=== PATIENT | female | born 1965 | race Caucasian/White ===

== ENCOUNTER → 2017-01-11 | Outpatient (CLI) | payer OTHER ==
[~2017-01-11] MED LIST: OXYC1TAB36 PO
== END ==
LOC: CLAB 09:35
PROVIDERS: ATTEND Family Medicine
DX: Z87.891 Personal history of nicotine dependence (principal)
CPT/HCPCS: 36415; 84443

== ENCOUNTER → 2017-01-15 | Day surgery (SDC) | payer OTHER ==
[2017-01-15 14:34] VITALS: BP 103/62; PULSE 80; RESP 16; TEMP 98.1; O2SAT 100
--- NOTE | 2017-01-15 16:55 | RADRPT ---
EXAM DATE/TIME: 01/15/2017 14:30 [facility] COMPARISON: No previous studies available for comparison. INDICATIONS : Right breast cancer. DOSE: 2 mCi Tc99m Sulfur Colloid INJECTION SITE: Right Breast MEDICAL HISTORY : Carcinoma, breast. SURGICAL HISTORY : None. ENCOUNTER: Initial ACUITY: 1 month PAIN SCALE: 3/10 LOCATION: Right Breast. TECHNIQUE: Injection(s) of sulfur colloid was performed under sonographic guidance. Static imaging was obtained .. FINDINGS: Deep and superficial injections were performed around the patient's mass. No definite lymph nodes wer e identified on the 30 minute scan. CONCLUSION: 1. No definite nodes identified on the 30 minute scan. Jabier Schreiber MD on January 15, 2017 at 16:53 Board Certified Radiologist. This report was verified electronically.
--- NOTE | 2017-01-15 16:56 | RADRPT ---
EXAM DATE/TIME: 01/15/2017 14:36 [facility] COMPARISON: CT THORAX W/O CONTRAST, August 15, 2016, 16:01. EXTERNAL COMPARISON : [facility], MRI BREAST, BILATERAL, December 10, 2016[facility], US BREAST, RIGHT. Ja lesvia 2016. [facility], MAMMOGRAM, BILATERALW TOMOSYNTHESIS, October 16, 2016. [facility], MR GUIDED LEFT BREAST BIOPSY, August 20, 2016. INDICATIONS : Right breast cancer. MEDICAL HISTORY : Breast cancer. SURGICAL HISTORY : Breast biopsy. Dilation and curettage. ENCOUNTER: Initial ACUITY: 7-11 months PAIN SCORE: 0/10 LOCATION: Right breast. AREA EVALUATED: Right breast, upper quadrant; at 11 o'clock Radiopharmaceutical dose: 2 Tc99m Arrey colloid FINDINGS: Breast ultrasound was performed prior to lymphoscintigraphy. The mass was easily localized. CONCLUSION: 1. Heterogeneous ill-defined right breast mass in the retroareolar region at approximately 12: 2. 00. Soft colloid was injected around this in the deep and subcutaneous planes for lymphoscintigrap hy. Jabier Schreiber MD on January 15, 2017 at 16:53 Board Certified Radiologist. This report was verified electronically.
== END | disposition home or self-care (01) ==
LOC: HRAD 12:48
PROVIDERS: ATTEND Surgery
DX: C50.911 Malignant neoplasm of unspecified site of right female breast (principal)
CPT/HCPCS: 76642; 78195; A9541

== ENCOUNTER 2017-01-16 05:49 | Observation (INO) | payer OTHER ==
[~2017-01-16] VITALS: Ht 170.2 cm; Wt 57.1 kg
[2017-01-16] MEDS ORDERED: ONDANSETRON HCL 4 MG/2 ML VIAL IV PUSH SCH (06:30)
[2017-01-16] MEDS ORDERED: LACTATED RINGER'S 1000 ML IV PRN (06:30)
[2017-01-16] MEDS ORDERED: ceFAZolin 2 GM PREMIX 50 ML IV SCH (06:30)
[2017-01-16] MEDS ORDERED: METOPROLOL TARTRATE 25 MG TAB PO PRN (06:30)
[2017-01-16] MEDS ORDERED: POVIDONE IODINE 5% (ANTISEPSIS KIT) 4 APPLICATIONS EACH NARE PRN (06:30)
[2017-01-16] MEDS ORDERED: SODIUM CHLORID 0.9% 500 ML IV PRN (06:30)
[2017-01-16] MEDS ORDERED: CHLORHEXIDINE GLUCONATE 2 % 1 PACK (2 CLOTHS) TOPICAL PRN (06:30)
[2017-01-16] MEDS ORDERED: INSULIN HUMAN REGULAR 1,000 UNITS/10 ML VIAL SQ PRN (06:30)
[2017-01-16 07:00] VITALS: BP 118/71; PULSE 78; RESP 20; TEMP 97.9; O2SAT 98
[2017-01-16] MEDS ORDERED: ACETAMINOPHEN 1000 MG/100 ML VIAL IV ONE ×2 (07:08→07:31)
[2017-01-16] MEDS ORDERED: FAMOTIDINE 20 MG/2 ML VIAL ONE (07:31)
[2017-01-16] MEDS ORDERED: MIDAZOLAM HCL 2 MG/2 ML VIAL ONE (07:31)
[2017-01-16] MEDS ORDERED: fentaNYL CITRATE 250 MCG/5 ML AMP ONE (07:31)
[2017-01-16] MEDS ORDERED: DEXAMETHASONE SOD PHOS 4 MG/ML VIAL ONE (07:31)
[2017-01-16] MEDS ORDERED: APREPITANT 40 MG CAP ONE (07:39)
--- NOTE | 2017-01-16 08:14 | MH ---
cc: LEEANN KENNEY M.D. DATE OF ADMISSION 01/16/2017 DATE OF 1965 CHIEF COMPLAINT Right breast cancer. Patient for bilateral mastectomies and immediate reconstruction with one-stage implant reconstruction. HISTORY This is a 51-year-old white female who felt a lump in her right breast sometime at the end of May of 2016, was diagnosed with biopsy-proven breast cancer, has been undergoing adjuvant chemotherapy to shrink the tumor which is fairly large in the right upper quadrant of the breast. The patient is now ready for mastectomy. She was also noted to have MRI abnormalities on the left breast and has decided to go with bilateral mastectomies. She does not want to have multiple surgeries and was explained the overall reconstruction process in detail in my office back on December 21, 2016. The patient was explained the prosthetic reconstruction versus autologous reconstruction versus a combination of the two. Her breast is fairly small. She does not want much volume or cleavage of the reconstructed breasts. She does not want to have any muscle flaps and wants to do only a single stage implant only reconstruction. She was explained the anatomical differences between the one-stage implant reconstruction versus a two-stage tissue auto service station attendant and second stage implant reconstruction in terms of the better positioning of the final implant towards the midline, however, she is not interested in that improvement at this time. She also has financial issues and is being covered by the [facility] as hansa and wants to finish this in one surgery if possible. She underwent a detailed explanation of the surgical technique, anatomy, the possibility of doing either an areolar sparing versus a skin sparing only mastectomy. The possibility of risks and complications such as flap vascularity issue due to the mastectomy, possibility of bleeding, hematoma, infection, seroma, lymphatic collection, possible wound dehiscence, wound necrosis, flap necrosis and loss of reconstruction, possible multiple surgeries including debridement and open wound care, wound Vac were pointed out. She is willing to take all the chances. She also understands the surgery is under general anesthesia and there are risks and complications associated with that as well. The cancer treatment will also continue. She may need radiation therapy postop. She may also need prolonged additional chemotherapy as well. The patient otherwise is psychologically stable and is able to understand the pros and cons well. PAST MEDICAL HISTORY Her medical history is negative for diabetes, hypertension or heart problems. She has history of genital herpes only. SOCIAL HISTORY The patient has been smoking one-pack of cigarettes for 20 years. She quit in June 2016. Alcohol social. No street drugs. ACCOUNT OFFICER HISTORY She has had four pregnancies, two children, was able to breast feed only a small time. CURRENT MEDICATIONS Include Vitamins. ALLERGIES No allergies. PHYSICAL EXAM Examination shows a 51-year-old white female with stable vital signs. GENERAL: The patient is alert, cooperative, fully oriented, emotionally stable. She is fully ambulant. HEAD AND NECK: Showed clear sclerae, equal pupils. Trachea in midline. No thyromegaly. No other masses. NECK: Normal neck movements. CHEST: Good expansion with normal breathing, normal breath sounds, normal heart sounds. EXTREMITIES: Grossly normal. BREASTS: The examination shows relatively small breasts with a wide space between the two breasts. The lump is palpable in the upper outer quadrant of the right breast. No nipple discharge. No bleeding at the nipple. There is some puckering of the skin noted on the right upper quadrant. The left breast is relatively normal. The measurement showed neck to the nipple distance of 18.5 on the right, 19.5 on the left. Nipple to the chest distance 5.0 on the right, 5.75 on the left. The nipple to the midline 9 cm on each side. The neck to the medial breast fold 14 cm, neck to the inframammary fold 19.5-20 cm. The medial breasts are by 2.5 to 3 cm. The transverse chest diameter is 14.5 on the right and 15.5 on the left. The mass is approximately 3 x 4 cm and somewhat adherent to the skin just above the areola. PLAN The plan is to proceed with bilateral mastectomies and immediate small implant reconstruction. The patient was shown the different implants, smooth textured silicone implant is selected by the patient. The others implants including saline and textured implants and shape implants were also shown. The approximate volume around 240-250 cc expected. The patient's laboratory tests will be reviewed when available on the chart. signed, not fully reviewed MD SANDRITA Leyva/RACHEL /7:43 AM /8:00 AM JOHN
[2017-01-16] MEDS ORDERED: GENTAMICIN SULFATE 80 MG/2 ML VIAL ONE (08:21)
[2017-01-16] MEDS ORDERED: BUPIVACAINE HCL PF 0.5% 30 ML VIAL ONE (08:21)
[2017-01-16] MEDS ORDERED: LIDOCAINE 1%/EPINEPHrine 1:100,000 SOLN 20 ML VIAL ONE (08:22)
[2017-01-16] MEDS ORDERED: SODIUM CHLORIDE 0.9% 20 ML VIAL ONE (08:53)
[2017-01-16] MEDS ORDERED: BUPIVACAINE/EPINEPHRINE 0.5% PF 30 ML VIAL ONE (08:55)
[2017-01-16] MEDS ORDERED: ceFAZolin INJ 1,000 MG VIAL IV ONE (11:45)
[2017-01-16] MEDS ORDERED: PROPOFOL 200 MG/20 ML AMP IV ONE (12:00)
[2017-01-16] MEDS ORDERED: DEXTROSE 5% IN WATE 500 ML INJ 500 ML IV ONE (12:00)
[2017-01-16] MEDS ORDERED: NORMOSOL R INJ 1,000 ML IV ONE (12:00)
[2017-01-16] MEDS ORDERED: NEOSTIGMINE 3 MG/3 ML SYR IV ONE (12:00)
[2017-01-16] MEDS ORDERED: ONDANSETRON HCL 4 MG/2 ML VIAL IV PUSH ONE (12:00)
[2017-01-16] MEDS ORDERED: MORPHINE SULFATE 4 MG/ML INJ ONE (12:29)
[2017-01-16] MEDS ORDERED: *morphine SULFATE 8 MG/ML PERIprocedure ONLY ONE (12:29)
[2017-01-16] MEDS: LACTATED RINGER'S 1000 ML INJ 1,000 ML IV SCH (12:43)
[2017-01-16] MEDS ORDERED: ISOSULFAN BLUE 50 MG/5 ML VIAL SQ ONE (12:46)
[2017-01-16] MEDS: HYDROmorphone HCL PF 1 MG/ML VIAL IV PRN ×2 (14:59→23:13)
[2017-01-16] MEDS ORDERED: *HYDROmorphone PF 1 MG VIAL PERIprocedural Use ONLY ONE (15:00)
[2017-01-16] MEDS ORDERED: PROMETHAZINE HCL 25 MG TAB PO PRN (15:15)
[2017-01-16] MEDS: oxyCODONE/ACETAMINOPHEN 7.5 MG/325 MG TAB PO PRN (19:24)
[2017-01-16 20:34] VITALS: BP 116/73; PULSE 77; RESP 16; TEMP 95.8; O2SAT 94
[2017-01-17] VITALS: BP 113/67; PULSE 78; RESP 16; TEMP 97.1; O2SAT 96
[2017-01-17] MEDS: oxyCODONE/ACETAMINOPHEN 7.5 MG/325 MG TAB PO PRN ×2 (02:05→05:59)
[2017-01-17 04:27] VITALS: O2SAT 96
[2017-01-17] MEDS: LACTATED RINGER'S 1000 ML INJ 1,000 ML IV SCH (05:58)
[2017-01-17 06:12] VITALS: BP 119/77; PULSE 88; RESP 16; TEMP 97.6; O2SAT 97
[2017-01-17 07:50] VITALS: BP 119/72; PULSE 78; RESP 20; TEMP 95.8; O2SAT 96
--- NOTE | 2017-01-17 08:50 | HHI.PR ---
Subjective Subjective Notes Patient doing well. Resting comfortably. No nausea. Good pain control on oral analgesics. Objective Vitals/I&O Vital Signs Date Time Temp Pulse Resp B/P Pulse Ox O2 Delivery O2 Flow Rate FiO2 01/17/17 06:12 97.6 88 16 119/77 97 01/16/17 18:57 Room Air 01/16/17 12:45 2 Labs Wouns clean and dry. Flaps viable. Drains working well. Abdomen: Non-distended, Non-tender Extremities: No edema A/P Discharge Planning Discharge home today Attending Statement Patient doing well with good pain control and oral intake. Ready for discharge. Lani Anton MD Jan 17, 2017 08:50
[2017-01-17] MEDS ORDERED: OXYC1TAB36 PO (08:58)
--- NOTE | 2017-01-17 09:01 | HHI.DS ---
Discharge Summary Admission Date Jan 16, 2017 at 20:10 Discharge Date: Jan 17, 2017 Admitting Diagnosis Breast cancer Procedures Bilateral mastectomy with implant reconstruction and right axillary sentinel lymph node biopsy Hospital Course Admitted for pain control and hydration. Tolerating diet with good pain control on oral analgesics. Pt Condition on Discharge: Good Discharge Disposition: Discharge Home Discharge Instructions DIET: Follow Instructions for: As Tolerated, No Restrictions Activities you can perform: Shower Only-No Bath Activities to avoid: Lifting/Bending, Strenuous Activity, Bathing, Driving Lani Anton MD Jan 17, 2017 09:01
[2017-01-17 09:40] VITALS: O2SAT 96
--- NOTE | 2017-01-18 10:55 | MP ---
cc: LANI STEELE DATE OF SURGERY 01/16/2017 PRINCIPAL DIAGNOSIS Locally advanced right breast cancer status post neoadjuvant chemotherapy. POSTOPERATIVE DIAGNOSIS Locally advanced right breast cancer status post neoadjuvant chemotherapy. PROCEDURE PERFORMED Bilateral skin sparing mastectomy with right axillary sentinel lymph node biopsy, bilateral implant reconstruction, and left subclavian port removal. SURGEON Lani Steele MD ANESTHESIA General endotracheal INDICATION The patient is a 51-year-old female with a history of locally advanced clinical Stage II right breast cancer. She has completed neoadjuvant chemotherapy with a moderate clinical response but still requires mastectomy for local control. She now presents for the procedure and has opted for bilateral reconstruction. FINDINGS AT SURGERY One sentinel lymph node was identified with a count of 2740. An adjacent suspicious lymph node was also identified and removed and both lymph nodes were sent for touch prep analysis which is pending at the time of this dictation. A palpable 2-cm, 10 o'clock periareolar right breast mass was identified. PROCEDURE PERFORMED After informed consent was obtained and site verification was performed, the patient was brought to the major operating room. The afternoon prior to surgery, she underwent radionuclide peritumoral injection. She underwent general endotracheal anesthesia, received a single dose of IV Ancef and sequential compression hose were placed. The right and left breasts were prepped and draped in sterile fashion to include the right arm. Five cc of half-strength Lymphazurin were injected in the subareolar right breast with a 5-minute massage. A periareolar skin incision was created to include the skin overlying the palpable tumor mass. 200 cc of tumescent solution were injected in the plane between the subcutaneous fat and anterior breast fascia circumferentially around the breast. Further sharp dissection was performed in the same plane superiorly to the clavicle, medially to the parasternal area, inferiorly to the anterior rectus sheath, and laterally to the axilla. Once the breast tissue had been sharply dissected to these margins, electrocautery was used to dissect the breast tissue off the pectoralis muscle. The specimen was oriented with the skin anterior, one short suture superiorly, and one long suture laterally. The specimen was weighed and sent for permanent pathologic evaluation. Attention was then turned to the right axilla and the clavipectoral fascia was divided. There were blue lymphatics within the breast but none were identified in the level I axilla. There was a palpable mid-level I lymph node which was circumferentially dissected free from surrounding structures using the harmonic scalpel with the count as noted. An adjacent palpable node was also circumferentially dissected free from surrounding structures using the harmonic scalpel and because this node was somewhat suspicious, it was sent as sentinel lymph node #2. There was no other radioactive count in the axilla and good hemostasis was noted. Reconstruction was then performed by Dr. Zavala and will be included on a separate dictation as well as the left mastectomy. MD SHADI Leonard/SILVANA /10:13 AM /10:47 AM
--- NOTE | 2017-01-18 11:51 | MP ---
cc: LEEANN KENNEY M.D. DATE OF SURGERY 01/15/2017 PREOPERATIVE DIAGNOSES 1. Right breast cancer. Patient for bilateral mastectomy and immediate one-stage reconstruction with silicone gel implant. 2. Left chest wall chemotherapy port to be removed. POSTOPERATIVE DIAGNOSES 1. Right breast cancer. Patient for bilateral mastectomy and immediate one-stage reconstruction with silicone gel implant. 2. Left chest wall chemotherapy port to be removed. OPERATION 1. Right mastectomy with sentinel lymph node biopsy by Dr. Anton; this will be dictated by Dr. Anton. 2. Left chest wall chemotherapy port removal 3. Left simple mastectomy. 4. Bilateral breast reconstruction with silicone gel and AlloMax one-stage reconstruction. SURGEON Dr. Anton for part 1, Dr. Kenney for remaining. ANESTHESIA General. INDICATIONS This is a 51-year-old white female with a large mass on the right breast upper pole about the areola slightly to the outer corner who has undergone chemotherapy preoperatively and is now ready to go for the bilateral mastectomy. Also, the chemotherapy port is no longer needed and is being removed. The patient underwent detailed explanation of the reconstructive options in my office including prosthesis alone in two stages, prosthesis in one stage, total breast reconstruction and combination of the two. She has elected to go with the single stage process on the reconstruction using silicone gel implants and AlloMax graft. She was shown different implants and the selection process was explained. A silicone gel high profile, smooth round implants are being used and a AlloMax graft is also being used to cover the lower half of the implants. The patient understands that the implants cannot be put as close to the midline as the breast can be but they will stay lateral to the medial border of the pectoralis major muscle under the muscle. The patient understands also that the size of the implant will be limited to what the body can accommodate without undue tension and she understands the possibility of bleeding, infection, seroma, hematoma, lymphocele collection, possible wound dehiscence, loss of mastectomy flaps, exposure of the prosthesis and loss of reconstruction, etc. She understands that, even though she wants all the surgery to be done in one-stage, multiple surgeries are possible in the future. Due to the nature of the tumor, both side nipple-areolar areas are being removed with the breast tissue as well. PROCEDURE The patient was brought to the operating room, was given supine position. Anesthesia was started. Prep and drape was done. IV antibiotic had been given. The preoperative markings were reinforced. On the right side the patient needs an incision around all of the areola and a second oval excision of the skin approximately between 12 o'clock and 11 o'clock position and continued with the areolar itself, going vertical about 2 to 2.5 cm and then this is going to be brought out laterally towards the axilla to facilitate the lymph node dissection as well. On the left side a periareolar circular and a lazy-S incision anesthesia incision laterally will be used. The breast flaps were tumesced with saline and Marcaine mixture. The port area on the left chest was also tumesced and the right side surgery was done by Dr. Anton; that will be dictated by her. On the left side the port was removed, first excising the old surgical scar including the one suture that was beginning to protrude through the skin. The catheter passage was suture ligated with 3-0 Vicryl just prior to pulling the catheter out to prevent any embolism. The capsule was excised. The cavity was closed with deep internal Vicryl sutures and subcuticular dermal Vicryl sutures as well. No need for any skin sutures. The simple mastectomy was carried out using the incision design. The mastectomy flaps were raised to the entire periphery of the breast tissue and then local anesthetic and the tumescent solution was injected under the breast as well and the breast was lifted off the chest wall easily. Hemostasis was completed mostly with Bovie and suture ligation for perforating vessels. The surgery on the right side was also completed in the meantime by Dr. Anton including the additional lymph node dissection and lymph node sampling. Once both sides were done, both areas were copiously washed clean. The chest wall was cleaned as well and new towels were placed. The instruments used on the cancer side were removed only. Clean instruments were continued to be used. The bilateral subpectoral pockets were created. The inferior border of the pectoralis major muscle attachment was released to allow more room. The AlloMax grafts, 8 x 16 were hydrated and treated with Ancef and they placed were in the pocket securing the inframammary fold and the lateral anterior axillary line areas. The Lateral axillary and the breast tissue dissection space was also closed down with internal 0 and 2-0 Vicryl sutures. Jeremy-Orantes drains were placed under the skin flaps over the muscle. The implant selected are Lavon[employer] Catalog number [id number], 240 cc Inspira breast implant, serial number [id number] on the patient's left, serial number [id number] on the patient's right. The implants were placed and posterior tab was verified. They were pushed under the pectoralis major muscle as much as possible and AlloMax graft was oversewn to the pectoralis major muscle border. The rest of the skin and flap closure was done. On the right side it was necessary to rearrange the skin into a triangular closure. On the left side a straight line with the lazy-S closure was possible. Drains were secured and activated. The patient remained stable. Intraoperative blood loss less than 100 cc. No complications. signed, not fully reviewed MD SANDRITA Leyva/SILVANA /11:47 AM /11:20 AM JOHN
== END 2017-01-17 10:26 | disposition home or self-care (01) ==
LOC: HSDC 05:49 → HOCB 20:10
PROVIDERS: ADMIT Surgery; ATTEND Surgery
DX: C50.911 Malignant neoplasm of unspecified site of right female breast (principal); N60.12 Diffuse cystic mastopathy of left breast; Z45.2 Encounter for adjustment and management of vascular access device; G62.9 Polyneuropathy, unspecified; Z59.9 Problem related to housing and economic circumstances, unspecified; Z87.891 Personal history of nicotine dependence; Z92.21 Personal history of antineoplastic chemotherapy
CPT/HCPCS: 00402; 15777; 19303; 19340; 36590; 38525; 38900; 88307; 88333; C1789; G0378; J0131; J0690; J1100; J1170; J2250; J2270; J2405; J2710; J3010; J7060; J7120; J8501; Q4100; Q9968; 88309; J1580